=== PATIENT | male | born 1995 | race Caucasian/White ===

== ENCOUNTER 2017-10-31 04:35 | Emergency (ER) | payer SELFPAY ==
[~2017-10-31] VITALS: Ht 170.2 cm; Wt 65.0 kg
[2017-10-31] MEDS ORDERED: IBUP-1984 PO (05:08)
[2017-10-31 05:15] VITALS: BP 171/90
== END 2017-10-31 05:16 | disposition home or self-care (01) ==
LOC: ER 04:36
DX: S40.212A Abrasion of left shoulder, initial encounter (principal); F12.10 Cannabis abuse, uncomplicated; V49.40XA Driver injured in collision with unspecified motor vehicles in traffic accident, initial encounter; Y93.89 Activity, other specified; Y92.89 Other specified places as the place of occurrence of the external cause; Y99.8 Other external cause status
CPT/HCPCS: 99283

== ENCOUNTER 2018-09-20 13:19 | Emergency (ER) | payer MEDICAID ==
[~2018-09-20] VITALS: Ht 177.8 cm; Wt 68.2 kg
[2018-09-20 13:24] VITALS: BP 133/75
== END 2018-09-20 15:11 | disposition home or self-care (01) ==
LOC: ER 13:20
DX: S92.022A Displaced fracture of anterior process of left calcaneus, initial encounter for closed fracture (principal); S93.492A Sprain of other ligament of left ankle, initial encounter; F12.90 Cannabis use, unspecified, uncomplicated; X50.1XXA Overexertion from prolonged static or awkward postures, initial encounter; Y93.39 Activity, other involving climbing, rappelling and jumping off; Y92.89 Other specified places as the place of occurrence of the external cause; Y99.9 Unspecified external cause status
CPT/HCPCS: 29515; 73600; 73630; 99283

== ENCOUNTER 2018-09-23 09:42 | Outpatient (CLI) | payer MEDICAID ==
[2018-09-23 09:41] VITALS: BP 152/84
== END 2018-09-23 10:47 | disposition home or self-care (01) ==
LOC: ORTHO 09:42
PROVIDERS: ATTEND Nurse Practitioner Family
DX: S92.022A Displaced fracture of anterior process of left calcaneus, initial encounter for closed fracture (principal); F12.90 Cannabis use, unspecified, uncomplicated; F17.210 Nicotine dependence, cigarettes, uncomplicated; X58.XXXA Exposure to other specified factors, initial encounter; Y93.89 Activity, other specified; Y92.89 Other specified places as the place of occurrence of the external cause; Y99.8 Other external cause status
CPT/HCPCS: 99213; A4590

== ENCOUNTER 2018-10-14 10:02 | Outpatient (CLI) | payer MEDICAID ==
[2018-10-14 09:52] VITALS: BP 142/83
== END 2018-10-14 10:03 | disposition home or self-care (01) ==
LOC: ORTHO 10:02
PROVIDERS: ATTEND Nurse Practitioner Family
DX: S92.02 Fracture of anterior process of calcaneus (principal); F17.210 Nicotine dependence, cigarettes, uncomplicated; X50.1XXD Overexertion from prolonged static or awkward postures, subsequent encounter
CPT/HCPCS: 73650; 99213; A4590

== ENCOUNTER 2018-11-04 10:12 | Outpatient (CLI) | payer MEDICAID ==
[2018-11-04 10:09] VITALS: BP 139/87
== END 2018-11-04 10:54 | disposition home or self-care (01) ==
LOC: ORTHO 10:12
PROVIDERS: ATTEND Nurse Practitioner Family
DX: S92.002G Unspecified fracture of left calcaneus, subsequent encounter for fracture with delayed healing (principal); M85.872 Other specified disorders of bone density and structure, left ankle and foot; F12.90 Cannabis use, unspecified, uncomplicated; F17.210 Nicotine dependence, cigarettes, uncomplicated; Z72.89 Other problems related to lifestyle; W17.89XD Other fall from one level to another, subsequent encounter
CPT/HCPCS: 73650; A4590; G0463; 99213

== ENCOUNTER 2018-11-25 09:48 | Outpatient (CLI) | payer MEDICAID ==
[2018-11-25 09:44] VITALS: BP 135/98
== END 2018-11-25 10:35 | disposition home or self-care (01) ==
LOC: ORTHO 09:48
PROVIDERS: ATTEND Nurse Practitioner Family
DX: S92.002G Unspecified fracture of left calcaneus, subsequent encounter for fracture with delayed healing (principal); M85.872 Other specified disorders of bone density and structure, left ankle and foot; F17.210 Nicotine dependence, cigarettes, uncomplicated; X50.1XXD Overexertion from prolonged static or awkward postures, subsequent encounter
CPT/HCPCS: 73650; 99213; A4590

== ENCOUNTER 2018-12-16 10:52 | Outpatient (CLI) | payer MEDICAID ==
[2018-12-16 10:53] VITALS: BP 139/79
== END 2018-12-16 11:29 | disposition home or self-care (01) ==
LOC: ORTHO 10:52
PROVIDERS: ATTEND Nurse Practitioner Family
DX: S92.041D Displaced other fracture of tuberosity of right calcaneus, subsequent encounter for fracture with routine healing (principal); F17.210 Nicotine dependence, cigarettes, uncomplicated; W17.89XD Other fall from one level to another, subsequent encounter
CPT/HCPCS: 73650; 99213

== ENCOUNTER 2019-01-12 14:01 | Outpatient (CLI) | payer MEDICAID | END 2019-01-12 14:55 | disposition home or self-care (01) | LOC: ORTHO 14:01 | PROVIDERS: ATTEND Orthopaedic Surgery | DX: S92.042D Displaced other fracture of tuberosity of left calcaneus, subsequent encounter for fracture with routine healing (principal); F17.210 Nicotine dependence, cigarettes, uncomplicated; M85.88 Other specified disorders of bone density and structure, other site; X58.XXXD Exposure to other specified factors, subsequent encounter | CPT/HCPCS: 73650; 99213 ==